=== PATIENT | female | born 2000 ===

== ENCOUNTER 2025-04-07 12:27 | Outpatient (REF) | payer OTHER, SELFPAY ==
[2025-04-09 17:08] LABS: Age Gdln ACOG Testing Note (.); IGP, rfx Aptima HPV ASCU Note (.)
== END 2025-04-07 12:28 | disposition home or self-care (01) ==
LOC: LAB 12:27
PROVIDERS: PCP Family Medicine; Visit Provider Physician Assistant
DX: Z01.419 Encounter for gynecological examination (general) (routine) without abnormal findings (principal)
CPT/HCPCS: 88175